=== PATIENT | male | born 1955 | race Caucasian/White ===

== ENCOUNTER 2021-09-23 08:45 | Day surgery (SDC) | payer MEDICARE, OTHER ==
[~2021-09-23 08:45] MED LIST: Lactated Ringers 1,000 ML IV SCH; Lidocaine 1%/Sod Bicarbonate in NS 8.4% 1 ML Syringe IDERM PRN; Sodium Chloride 0.9% 10 ML Syringe FLUSH PRN; Sodium Chloride 0.9% 10 ML Syringe FLUSH SCH
[2021-09-23] MEDS ORDERED: fentaNYL 100 MCG/2 ML SDV ONE (11:20)
[2021-09-23] MEDS ORDERED: Propofol 200 MG/20 ML SDV ONE (11:20)
[2021-09-23] MEDS ORDERED: Lidocaine 1% 4 ML ONE (11:26)
[2021-09-23] MEDS ORDERED: ceFAZolin 1 GM Vial ONE (11:26)
[2021-09-23] MEDS ORDERED: ePHEDrine 50 MG/ML SDV ONE (12:18)
[2021-09-23] MEDS ORDERED: Lactated Ringers 1,000 ML ONE (12:42)
[2021-09-23] MEDS ORDERED: fentaNYL 100 MCG/2 ML SDV IVPUSH PRN (12:59)
[2021-09-23] MEDS ORDERED: HYDROmorphone 0.5 MG/0.5 ML Syringe IVPUSH PRN (12:59)
[2021-09-23] MEDS ORDERED: Ondansetron 4 MG/2 ML SDV IVPUSH PRN (12:59)
[2021-09-23] MEDS ORDERED: Ropivacaine 0.5% 5 MG/ML 30 ML SDV ONE (13:07)
[2021-09-23] MEDS ORDERED: EPINEPHrine 1 MG/ML SDV ONE (13:07)
[2021-09-23] MEDS: Acetaminophen/HYDROcodone 325-5 MG Tab PO PRN ×2 (15:15→16:25)
== END 2021-09-23 16:43 | disposition home or self-care (01) ==
LOC: JD.SDS 08:45
PROVIDERS: ATTEND Orthopaedic Surgery
DX: S76.111A Strain of right quadriceps muscle, fascia and tendon, initial encounter (principal); E78.5 Hyperlipidemia, unspecified; J45.20 Mild intermittent asthma, uncomplicated; E11.9 Type 2 diabetes mellitus without complications; E03.9 Hypothyroidism, unspecified; Z91.048 Other nonmedicinal substance allergy status; Z79.890 Hormone replacement therapy; Z79.899 Other long term (current) drug therapy; Z87.891 Personal history of nicotine dependence; X58.XXXA Exposure to other specified factors, initial encounter
CPT/HCPCS: 27385; 76000; A9270; J0171; J0690; J2704; J2795; J3010; J7120; 01320; 64447; 76942